=== PATIENT | male | born 1995 | race African-American/Black ===

== ENCOUNTER 2016-12-14 18:40 | Emergency (ER) | payer SELFPAY ==
[2016-12-14] MEDS ORDERED: NORMAL SALINE 1000 ML 1,000 ML IV ONE ×2 (19:00→21:35)
--- NOTE | 2016-12-14 19:03 | ER Document Report ---
ED Medical Screen (RME) - General Chief Complaint: Abdominal Pain Stated Complaint: STOMACH PAIN/BREATHING PROBLEM Notes: Patient is a 21-year-old male presents emergency Department complaining of vomiting, abdominal pain and urinary frequency, he has been having these symptoms for about 4 weeks. Patient is a type I diabetic. Patient states that his blood sugar this morning was in the 300s. I have greeted and performed a rapid initial assessment of this patient. A comprehensive ED assessment and evaluation of the patient, analysis of test results and completion of the medical decision making process will be conducted by additional ED providers. TRAVEL OUTSIDE OF THE [place] IN LAST 30 DAYS: No - Related Data Allergies/Adverse Reactions: No Known Allergies Allergy (Verified 12/14/16 18:59) Past Medical History - Social History Chew tobacco use (# tins/day): No Frequency of alcohol use: None Drug Abuse: Marijuana Renal/ Medical History: Denies: Hx Peritoneal Dialysis Physical Exam - Vital signs Vitals: Temp Pulse Resp BP Pulse Ox 98.3 F 60 18 168/91 H 99 12/14/16 18:53 12/14/16 18:53 12/14/16 18:53 12/14/16 18:53 12/14/16 18:53 Course - Vital Signs Vital signs: Temp Pulse Resp BP Pulse Ox 98.3 F 60 18 168/91 H 99 12/14/16 18:53 12/14/16 18:53 12/14/16 18:53 12/14/16 18:53 12/14/16 18:53
--- NOTE | 2016-12-14 19:18 | ER Document Report ---
ED GI/ - General Chief Complaint: Abdominal Pain Stated Complaint: STOMACH PAIN/BREATHING PROBLEM Time seen by provider: 19:18 Mode of Arrival: Ambulatory Information source: Patient Notes: 21 yo type 1 diabetic from [facility] (PCP there) here for fraternity initiation until tomorrow, c/o uncontrolled glucose for several weeks, urinary frequency, right frontal headache which is 3/5 now, sore throat, occasional cough. Had flu 2 weeks ago. takes sliding scale based on his glucose and what he eats. today went up to 425. Vomited today after eating. No chest pain or abd pain. No dairrhea. No dysuria. No fever. Breathed fast today when he was crying. States he has never been in DKA, although he has been in 3 other hospitals this month for diabetes and headache. TRAVEL OUTSIDE OF THE [place] IN LAST 30 DAYS: No - Related Data Allergies/Adverse Reactions: No Known Allergies Allergy (Verified 12/14/16 18:59) Past Medical History - General Information source: Patient - Social History Smoking Status: Never Smoker Chew tobacco use (# tins/day): No Frequency of alcohol use: None - non drinker, even at this [employer] function Drug Abuse: Marijuana Lives with: Family Family History: Reviewed & Not Pertinent Patient has suicidal ideation: No Patient has homicidal ideation: No Endocrine Medical History: Reports: Hx Diabetes Mellitus Type 1 Renal/ Medical History: Denies: Hx Peritoneal Dialysis Surgical Hx: Negative Review of Systems - Review of Systems Constitutional: Weakness EENT: Throat pain Cardiovascular: No symptoms reported Respiratory: See HPI, Cough - occasionly only Gastrointestinal: See HPI Genitourinary: No symptoms reported Male Genitourinary: No symptoms reported Musculoskeletal: No symptoms reported Skin: No symptoms reported Hematologic/Lymphatic: No symptoms reported Neurological/Psychological: No symptoms reported Physical Exam - Vital signs Vitals: Temp Pulse Resp BP Pulse Ox 98.3 F 60 18 168/91 H 99 12/14/16 18:53 12/14/16 18:53 12/14/16 18:53 12/14/16 18:53 12/14/16 18:53 Interpretation: Hypertensive - General General appearance: Appears well, Alert In distress: None - HEENT Head: Normocephalic, Atraumatic Eyes: Normal Conjunctiva: Normal Extraocular movements intact: Yes Pupils: PERRL Nerve palsy: No Mucous membranes: Normal Pharynx: Normal Neck: Supple. No: Lymphadenopathy - Respiratory Respiratory status: No respiratory distress Chest status: Nontender Breath sounds: Normal Chest palpation: Normal - Cardiovascular Rhythm: Regular Heart sounds: Normal auscultation Murmur: No - Abdominal Inspection: Normal Distension: No distension Bowel sounds: Normal Tenderness: Nontender. No: Tender Organomegaly: No organomegaly - Back Back: Normal, Nontender - Extremities General upper extremity: Normal inspection, Nontender, Normal color, Normal ROM , Normal temperature General lower extremity: Normal inspection, Nontender, Normal color, Normal ROM , Normal temperature, Normal weight bearing. No: Macie's sign - Neurological Neuro grossly intact: Yes Cognition: Normal Orientation: AAOx4 [place] Coma Scale Eye Opening: Spontaneous [place] Coma Scale Verbal: Oriented Pily Coma Scale Motor: Obeys Commands [place] Coma Scale Total: 15 Speech: Normal Motor strength normal: LUE, RUE, LLE, RLE Sensory: Normal - Psychological Associated symptoms: Normal affect, Normal mood - Skin Skin Temperature: Warm Skin Moisture: Dry Skin Color: Normal Skin irregularity: negative: Rash Course - Re-evaluation Re-evalutation: 12/14/16 21:49 Venous blood gas was not drawn the labs are drawn. His glucose was 333, his CO2 was 20. He is getting 2 bags of fluid. 12/14/16 21:[address] hi, does want the venous blood gas after the 2nd liter of fluid, give lispro 6 units sq now. 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 12/15/16 00:15 Accu-Chek 213 patient will be discharged. minimal nausea, no vomiting - Vital Signs Vital signs: Temp Pulse Resp BP Pulse Ox 98.5 F 60 16 152/83 H 99 12/15/16 00:00 12/14/16 18:53 12/15/16 00:00 12/15/16 00:00 12/15/16 00:00 - Laboratory Result Diagrams: 12/14/16 20:50 12/14/16 20:50 Laboratory results interpreted by me: 12/14/16 12/14/16 12/14/16 20:36 20:50 20:50 Hgb 12.9 L RDW 14.5 H Monocytes % 14.9 H Carbon Dioxide 20 L Glucose 327 H POC Glucose 333 H Urine Glucose (UA) Urine Ketones 12/14/16 12/15/16 20:50 00:13 Hgb RDW Monocytes % Carbon Dioxide Glucose POC Glucose 213 H Urine Glucose (UA) >=500 H Urine Ketones 80 H Discharge - Discharge Clinical Impression: Dehydration Uncontrolled diabetes mellitus Qualifiers: Diabetes mellitus type: type 1 Diabetes mellitus complication status: without complication Qualified Code(s): E10.9 - Type 1 diabetes mellitus without complications Condition: Good Disposition: HOME, SELF-CARE Instructions: Nausea or Vomiting, Nonspecific ([facility]), Diabetes ([facility]) Additional Instructions: drink plenty of water per day to er if symptoms recur Return to [place] tomorrow and not to school and see your diabetes doctor on friday since your glucoses have been out of control for 3 weeks Please complete the patient satisfaction survey if you get one, and return it.. If you do not receive a survey, then you can go to the [facility] website, [email or web address] and place your comments about your very good care. Thank you very much. It was a pleasure being your medical provider today. Forms: Return to School
--- NOTE | 2016-12-14 20:34 | EKG REPORT ---
SEVERITY:- NORMAL ECG - SINUS RHYTHM : Confirmed by: Samra Beard MD 14-Dec-2016 20:33:57
[2016-12-14 20:59] LABS: ABSOLUTE BASOPHILS # (AUTO) 0.1 10^3/uL (0.0-0.2); ABSOLUTE EOSINOPHILS # (AUTO) 0.1 10^3/uL (0.0-0.6); ABSOLUTE NEUT (AUTO) 3.3 10^3/uL (1.7-8.2); BASOPHILS % (AUTO) 1.3 % (0-2); EOSINOPHILS % (AUTO) 1.8 % (0-6); HEMATOCRIT 38.6 % (37.9-51.0); HEMOGLOBIN 12.9 g/dL (13.5-17.0); HGB HCT DIFFERENCE 0.1; LYMPHOCYTES % (AUTO) 30.8 % (13-45); MEAN CORPUSCULAR HEMOGLOBIN 29.6 pg (27.0-33.4); MEAN CORPUSCULAR HGB CONC 33.5 g/dL (32.0-36.0); MEAN CORPUSCULAR VOLUME 88 fl (80-97); MONOCYTES % (AUTO) 14.9 % (3-13); RED BLOOD COUNT 4.37 10^6/uL (4.35-5.55); RED CELL DISTRIBUTION WIDTH 14.5 % (11.5-14.0); SEGMENTED NEUTROPHILS % (AUTO) 51.2 % (42-78); WHITE BLOOD COUNT 6.5 10^3/uL (4.0-10.5)
[2016-12-14 21:12] LABS: ALANINE AMINOTRANSFERASE 45 U/L (21-72); ALKALINE PHOSPHATASE 73 U/L (38-126); ANION GAP 17 (5-19); ASPARTATE AMINO TRANSFERASE 25 U/L (17-59); BLOOD UREA NITROGEN 13 mg/dL (7-20); CALCIUM 9.8 mg/dL (8.4-10.2); CARBON DIOXIDE 20 mmol/L (22-30); CHLORIDE 103 mmol/L (98-107); CREATININE RESULT 0.72 mg/dL (0.52-1.25); GLUCOSE 327 mg/dL (75-110); POTASSIUM 4.8 mmol/L (3.6-5.0); SODIUM 140.2 mmol/L (137-145); TOTAL PROTEIN 7.1 g/dL (6.3-8.2)
[2016-12-14 21:50] LABS: APPEARANCE,URINE CLEAR; BILIRUBIN,URINE NEGATIVE (NEGATIVE); GLUCOSE, URINE >=500 mg/dL (NEGATIVE); KETONES,URINE 80 mg/dL (NEGATIVE); LEUKOCYTE ESTERASE,URINE NEGATIVE (NEGATIVE); NITRITE,URINE NEGATIVE (NEGATIVE); PROTEIN,URINE NEGATIVE (NEGATIVE); URINE SPECIFIC GRAVITY 1.035; UROBILINOGEN,URINE NEGATIVE mg/dL (<2.0)
[2016-12-14] MEDS ORDERED: INSULIN LISPRO 100 UNIT/ML 3 ML VIAL SUBCUT ONE (21:53)
[2016-12-14] MEDS ORDERED: ONDANSETRON 4 MG TAB.RAPDIS PO ONE (22:23)
[2016-12-14 23:32] LABS: VENOUS BLOOD BASE EXCESS -4.8 mmol/L; VENOUS BLOOD HCO3 20.8 mmol/L (20-32); VENOUS BLOOD PCO2 40.4 mmHg (35-63); VENOUS BLOOD PH 7.33 (7.30-7.42)
[2016-12-15 00:43] VITALS: BP 152/83
== END 2016-12-15 00:40 | disposition home or self-care (01) ==
LOC: ER 18:40
DX: E86.0 Dehydration (principal); E10.9 Type 1 diabetes mellitus without complications; R10.9 Unspecified abdominal pain; R06.02 Shortness of breath; R35.0 Frequency of micturition; R11.10 Vomiting, unspecified; J02.9 Acute pharyngitis, unspecified; R05 Cough; R51 Headache
CPT/HCPCS: 93005; 99284; 96360; 36415; 87086; 82962; 85025; 80053; 81001; 82803; 93010; S0119; J1815; J7030